=== PATIENT | female | born 1995 | race Caucasian/White ===

== ENCOUNTER 2016-10-28 18:48 | Inpatient (IN) | payer OTHER, MEDICAID ==
[2016-10-28] MEDS ORDERED: Dinoprostone* 10 MG VAG.SUPP VAGINAL ONE (18:54)
[2016-10-29] MEDS: Misoprostol TAB* 100 MCG PO SCH ×3 (09:19→20:18)
[2016-10-29] MEDS ORDERED: Misoprostol TAB* 100 MCG ONE ×2 (14:01→20:14)
[2016-10-30] MEDS ORDERED: Nalbuphine* 20 MG/ML 1 ML VIAL IV ONE ×3 (00:49→21:45)
[2016-10-30] MEDS ORDERED: Promethazine INJ(RESTRICTED)* 25 MG/ML 1 ML VIAL IV ONE ×3 (00:49→21:45)
[2016-10-30] MEDS ORDERED: Lactated Ringers 500 ml BAG* 500 ML IV ONE (01:00)
[2016-10-30] MEDS ORDERED: Nalbuphine* 20 MG/ML 1 ML VIAL ONE (01:02)
[2016-10-30] MEDS ORDERED: Promethazine INJ(RESTRICTED)* 25 MG/ML 1 ML VIAL ONE (01:02)
[2016-10-30 01:07] LABS: Hematocrit 32 % (35-47); Hemoglobin 10.8 g/dl (12.0-16.0); Mean Corpuscular HGB Conc 34 g/dl (31-36); Mean Corpuscular Hemoglobin 26 pg (27-31); Mean Corpuscular Volume 77 fL (80-97); Mean Platelet Volume 8 um3 (7.4-10.4); Red Blood Count 4.16 10^6/ul (4.0-5.4); Red Cell Distribution Width 15 % (10.5-15); White Blood Count 15.6 10^3/ul (3.5-10.8)
[2016-10-30 01:08] LABS: Comments Flag Yes
[2016-10-30 01:09] LABS: Add Diff/Slide Review? Slide Review Added
[2016-10-30] MEDS ORDERED: Oxytocin in LR* 20 UNITS/1,000 ML BAG IVPB ONE (09:55)
[2016-10-30] MEDS ORDERED: Oxytocin in LR* 20 UNITS/1,000 ML BAG IVPB SCH ×2 (10:00→21:49)
[2016-10-31] MEDS ORDERED: OBEPIDURAL* 250 ML ONE (01:06)
[2016-10-31] MEDS ORDERED: Sodium Citrate/Citric Acid* 15 ML UDC PO PRN (01:49)
[2016-10-31] MEDS ORDERED: Phenylephrine IV* 40 MCG/ML 10 ML SYRINGE IV PUSH PRN (01:49)
[2016-10-31] MEDS ORDERED: EPHEDrine (Pressors)* 50 MG/ML VIAL IV PUSH PRN (01:49)
[2016-10-31] MEDS ORDERED: Famotidine TAB* 20 MG PO PRN (01:49)
[2016-10-31] MEDS ORDERED: OBEPIDURAL* 250 ML EPIDURAL SCH (02:00)
[2016-10-31] MEDS ORDERED: Clindamycin 600 MG IVPREMIX(* 600 MG/50 ML SDV IV ONE (04:41)
[2016-10-31] MEDS ORDERED: Acetaminophen TAB* 325 MG PO ONE (04:42)
[2016-10-31] MEDS ORDERED: Acetaminophen TAB* 325 MG ONE (04:44)
[2016-10-31] MEDS ORDERED: Glycerin ADULT SUPP PR PRN (06:45)
[2016-10-31] MEDS ORDERED: oxyCODONE/Acetamin 5/325 MG* TAB PO PRN (06:45)
[2016-10-31] MEDS ORDERED: Oxytocin in LR* 20 UNITS/1,000 ML BAG IVPB SCH (06:48)
[2016-10-31] MEDS ORDERED: Ammonia Inhalant* 1 EA AMP ONE (08:38)
[2016-10-31] MEDS: Docusate CAP* 100 MG PO SCH ×3 (14:04→20:34)
[2016-10-31] MEDS: Witch Hazel PAD* JAR TOPICAL PRN (16:22)
[2016-10-31] MEDS: Dibucaine 1% 28.35 GM TUBE PR PRN (16:22)
[2016-10-31] MEDS: Acetaminophen TAB* 325 MG PO PRN (20:34)
[2016-11-01] MEDS: Acetaminophen TAB* 325 MG PO PRN ×4 (00:38→20:21)
[2016-11-01] MEDS: Docusate CAP* 100 MG PO SCH ×3 (08:49→20:29)
[2016-11-01 09:48] LABS: Hematocrit 26 % (35-47); Hemoglobin 8.6 g/dl (12.0-16.0); Mean Corpuscular HGB Conc 33 g/dl (31-36); Mean Corpuscular Hemoglobin 26 pg (27-31); Mean Corpuscular Volume 77 fL (80-97); Mean Platelet Volume 8 um3 (7.4-10.4); Red Blood Count 3.38 10^6/ul (4.0-5.4); Red Cell Distribution Width 15 % (10.5-15); White Blood Count 34.7 10^3/ul (3.5-10.8)
[2016-11-01 09:53] LABS: Comments Flag Yes
[2016-11-01 09:56] LABS: Add Diff/Slide Review? Slide Review Added
[2016-11-01 10:14] LABS: Eosinophils % 1 % (0-6); Immature Granulocytes 15 % (0-9); Neutrophil % 70 % (38-83)
[2016-11-01 10:15] LABS: Polychromasia 1+
[2016-11-01] MEDS: Ferrous Gluconate TAB* 324 MG TAB PO SCH ×2 (10:59→20:21)
[2016-11-02] MEDS: Acetaminophen TAB* 325 MG PO PRN (10:06)
[2016-11-02] MEDS: Docusate CAP* 100 MG PO SCH (10:06)
[2016-11-02] MEDS: Ferrous Gluconate TAB* 324 MG TAB PO SCH (10:06)
[2016-11-02 12:04] VITALS: BP 126/86
[2016-11-02] MEDS: Witch Hazel PAD* JAR TOPICAL PRN (12:24)
[2016-11-02] MEDS: Dibucaine 1% 28.35 GM TUBE PR PRN (12:24)
== END 2016-11-02 13:11 | disposition home or self-care (01) | DRG 560 ==
LOC: MCHOBOUT 18:48 → MCHOB 19:20
PROVIDERS: ADMIT Midwife; ATTEND Midwife
PROC: 10E0XZZ Delivery of Products of Conception, External Approach (ICD-10-PCS; principal; 2016-10-31)
PROC: 3E033VJ Introduction of Other Hormone into Peripheral Vein, Percutaneous Approach (ICD-10-PCS; 2016-10-31)
PROC: 10907ZC Drainage of Amniotic Fluid, Therapeutic from Products of Conception, Via Natural or Artificial Opening (ICD-10-PCS; 2016-10-31)
PROC: 0W8NXZZ Division of Female Perineum, External Approach (ICD-10-PCS; 2016-10-31)
DX: O48.0 Post-term pregnancy (principal); O99.344 Other mental disorders complicating childbirth; D64.9 Anemia, unspecified; O69.3XX0 Labor and delivery complicated by short cord, not applicable or unspecified; O90.81 Anemia of the puerperium; F41.8 Other specified anxiety disorders; Z88.6 Allergy status to analgesic agent; Z88.0 Allergy status to penicillin; Z88.8 Allergy status to other drugs, medicaments and biological substances; Z3A.41 41 weeks gestation of pregnancy; Z37.0 Single live birth
CPT/HCPCS: 36415; 59200; 85025; 86850; 86900; 86901; A9270-GY; J1580; J2300; J2550; S0191

== ENCOUNTER 2017-02-21 17:50 | Emergency (ER) | payer OTHER ==
[2017-02-21 18:09] VITALS: BP 118/84
[2017-02-21] MEDS ORDERED: Acetaminophen TAB* 325 MG PO ONE (18:37)
--- NOTE | 2017-02-21 19:58 | UC ---
Gerardo Cleaning Nilda, scribed for Jordy Mtz MD on 02/21/17 at 1950 . Complaint Female HPI - HPI Summary HPI Summary: This patient is a 21 year old F presenting to [facility] with a chief complaint of constant pain that wraps around lower abdomen and back for the past 3 days. The patient rates the cramping, aching pain 4/10 in severity. Symptoms aggravated by urination and alleviated by Tylenol taken [employer]. Patient reports fever, lightheadedness, vomiting (unsure if secondary to pain), and feeling severe pressure-like pain for 5-10 seconds after urination. Patient denies sore throat. Since having her daughter 10/31/16, pt had been bleeding up until 2.5 weeks ago s/p bcp adjustment. Pt notes shes had a UTI before having her daughter but was asymptomatic at that time. PMHx includes ovarian cyst. - History Of Current Complaint Chief Complaint: UCAbdominalPain Stated Complaint: ABD AND LOWER BACK PAIN Time Seen by Provider: 02/21/17 18:31 Hx Obtained From: Patient Hx Last Menstrual Period: 10/31/16-daughter born Onset/Duration: Sudden Onset, Lasting Days, Still Present Timing: Constant Severity Currently: Moderate Pain Intensity: 4 Pain Scale Used: 0-10 Numeric Radiates to: lower back Character: Cramping Aggravating Factor(s): Urination Alleviating Factor(s): Meds - Tylenol Associated Signs And Symptoms: Positive: Fever, Back Pain, Vomiting(# Of Episodes =) - Allergies/Home Medications Allergies/Adverse Reactions: Allergies Allergy/AdvReac Type Severity Reaction Status Date / Time Penicillins [PCN] Allergy Intermediate Hives Verified 02/21/17 18:09 Aspirin Allergy Hives Verified 02/21/17 18:09 Ibuprofen Allergy Hives Verified 02/21/17 18:09 Paroxetine [From Paxil] Allergy Hives Verified 02/21/17 18:09 Tramadol AdvReac Mild Vomiting Verified 02/21/17 18:09 Dicyclomine [From Bentyl] AdvReac gastritis Verified 02/21/17 18:09 Home Medications: Home Medications Ethynodiol Diacet & Eth Estrad [Kelnor 1-35 mg-Mcg] 1 tab PO DAILY [History Confirmed 02/21/17] PMH/Surg Hx/FS Hx/Imm Hx GI/ History: Gastroesophageal Reflux, Other Other GI/ History: ovarian cyst Neurological History: Seizures Psychological History: Anxiety, Depression - Surgical History Surgical History: Yes Surgery Procedure, Year, and Place: 2012 CYST DRAINED FROM [facility]ENEATH JAW, [facility]. 2013 CYST REMOVED FROM [facility]ENE[facility], [facility]. 10/2014 LEFT WRIST TENDON REPAIR, [facility]. ALC L leg. - Family History Known Family History: Positive: Cardiac Disease, Hypertension, Diabetes Family History: no cardoi-vascular issues in family history, no clotting disorders, - Social History Alcohol Use: None Substance Use Type: None Smoking Status (MU): Former Smoker Type: Cigarettes Amount Used/How Often: 1/2 pack daily Have You Smoked in the Last Year: Yes Household Exposure Type: Cigarettes - Immunization History Most Recent Influenza Vaccination: Declined 2016 Most Recent Pneumonia Vaccination: Uknown Review of Systems Constitutional: Fever ENT: Other - negative sore throat Gastrointestinal: Abdominal Pain - lower abd pain that radiates to lower back, Vomiting - possibly secondary to pain Genitourinary: Other - severe pressure-like pain for 5-10 seconds after urination Neurological: Other - lightheadedness All Other Systems Reviewed And Are Negative: Yes Physical Exam Triage Information Reviewed: Yes Vital Signs: Initial Vital Signs Temp 101.7 F 02/21/17 18:04 Pulse 117 02/21/17 18:04 Resp 14 02/21/17 18:04 BP 118/84 02/21/17 18:04 Pulse Ox 100 02/21/17 18:04 Vital Signs Reviewed: Yes - Additional Comments General: mildly ill-appearing, no pain distress Skin: warm, color reflects adequate perfusion, dry Head: normal Eyes: EOMI, DAVID ENT: normal Neck: supple, nontender Respiratory: CTA, breath sounds present Cardiovascular: tachycardic Abdomen: soft, mild suprapubic tenderness Bowel: present Musculoskeletal: normal, strength/ROM intact, bilat CVA tender to percussion Neurological: normal, sensory/motor intact, A&O x3 Psychological: affect/mood appropriate Complaint Female Dx - Course Course Of Treatment: Medications reviewed. Allergies noted. BP noted and advised to follow up with PCP. DISCUSSED RESULTS WITH PATIENT. F/U PMD; RETURN IF NOT IMPROVED OR WORSENS. - Differential Dx/Diagnosis Provider Diagnoses: UTI. Elevated blood pressure without history of hypertension Discharge - Discharge Plan Condition: Stable Disposition: HOME Prescriptions: Ondansetron ODT TAB* [Zofran 4 MG Odt TAB*] 4 mg PO Q6H PRN #10 tab.odt PRN Reason: Nausea Phenazopyridine 200 mg (NF) [Pyridium 200 MG tab *] 200 mg PO TID PRN #10 tab PRN Reason: Pain Sulfamethox/Trimethoprim DS* [Bactrim DS 800/160 TAB*] 1 tab PO BID #20 tab Patient Education Materials: Urinary Tract Infection in Women (ED) Forms: *Work Release Referrals: Dixie Barahona CNM [Primary Care Provider] - Additional Instructions: FOLLOW UP WITH YOUR DOCTOR. GET RECHECKED FOR ANY WORSENING OF YOUR CONDITION OR QUESTIONS OR CONCERNS. Your blood pressure was elevated during todays visit; please follow up with your primary care provider within a week for further evaluation. The documentation as recorded by the Gerardo hayden Nilda accurately reflects the service I personally performed and the decisions made by me, Jordy Mtz MD.
== END 2017-02-21 19:08 | disposition home or self-care (01) ==
LOC: UCEAST 17:50
DX: N39.0 Urinary tract infection, site not specified (principal); I10 Essential (primary) hypertension; R11.10 Vomiting, unspecified; Z88.0 Allergy status to penicillin; Z88.6 Allergy status to analgesic agent; Z88.8 Allergy status to other drugs, medicaments and biological substances; Z87.891 Personal history of nicotine dependence
CPT/HCPCS: 81003; 81025; 87077; 87086; 87186; 99212; A9270-GY; G0463

== ENCOUNTER 2017-06-22 12:48 | Emergency (ER) | payer MEDICAID, OTHER ==
[2017-06-22 13:00] VITALS: BP 110/68
--- NOTE | 2017-06-22 13:02 | UC ---
Respiratory Complaint HPI - HPI Summary HPI Summary: 21 yo female presents with 4 days of dry cough, right ear pain, and sinus pain/ pressure/congestion. She has not been taking anything OTC. Denies fever, chills , sore throat, SOB, chest pain. - History of Current Complaint Chief Complaint: UCRespiratory Stated Complaint: URI Time Seen by Provider: 06/22/17 13:02 Hx Obtained From: Patient Hx Last Menstrual Period: 06/15/17 Onset/Duration: Gradual Onset Severity Initially: Mild Severity Currently: Moderate Pain Intensity: 5 Pain Scale Used: 0-10 Numeric Character: Cough: Nonproductive - Allergies/Home Medications Allergies/Adverse Reactions: Allergies Allergy/AdvReac Type Severity Reaction Status Date / Time aspirin Allergy Hives Verified 06/22/17 13:02 ibuprofen Allergy Hives Verified 06/22/17 13:02 paroxetine [From Paxil] Allergy Hives Verified 06/22/17 13:02 Penicillins Allergy Hives Verified 06/22/17 13:02 tramadol Allergy See Comment Verified 06/22/17 13:02 PMH/Surg Hx/FS Hx/Imm Hx - Additional Past Medical History Additional PMH: None Previously Healthy: Yes - Surgical History Surgical History: Yes Surgery Procedure, Year, and Place: 2012 CYST DRAINED FROM [facility], [facility]. 2013 CYST REMOVED FROM [facility], [facility]. 10/2014 LEFT WRIST TENDON REPAIR, [facility]. ALC L leg. - Family History Known Family History: Positive: Cardiac Disease, Hypertension, Diabetes Family History: no cardoi-vascular issues in family history, no clotting disorders, - Social History Occupation: Employed Full-time Lives: With Family Alcohol Use: None Substance Use Type: None Smoking Status (MU): Former Smoker Type: Cigarettes Amount Used/How Often: 1/2 pack daily Have You Smoked in the Last Year: Yes Household Exposure Type: Cigarettes - Immunization History Most Recent Influenza Vaccination: Declined 2017 Most Recent Pneumonia Vaccination: Uknown Review of Systems Constitutional: Negative Skin: Negative Eyes: Negative ENT: Ear Ache, Nasal Discharge, Sinus Congestion, Sinus Pain/Tenderness Respiratory: Cough Cardiovascular: Negative Gastrointestinal: Negative Neurovascular: Negative Neurological: Negative Psychological: Negative All Other Systems Reviewed And Are Negative: Yes Physical Exam - Summary Physical Exam Summary: GENERAL: NAD. WDWN. No pain distress. SKIN: No rashes, sores, lesions, or open wounds. HEENT: Head: AT/NC Eyes: EOM intact. Conjunctiva clear without inflammation or discharge. Ears: Hearing grossly normal. Right TM with mild erythema and bulging. No canal edema or drainage. Nose: Nasal mucosa mildly swollen and erythematous with yellow/ clear discharge. TTP maxillary and frontal sinus. Throat: Posterior oropharynx without exudates, erythema, or tonsillar enlargement. Uvula midline. NECK: Supple. Nontender. No lymphadenopathy. CHEST: CTAB. No r/r/w. No accessory muscle use. Breathing comfortably and in no distress. CV: RRR. Without m/r/g. Pulses intact. Brisk cap refill. NEURO: Alert. CN II-XII grossly intact. PSYCH: Age appropriate behavior. Triage Information Reviewed: Yes Vital Signs: Initial Vital Signs Temp 98.2 F 06/22/17 12:57 Pulse 83 06/22/17 12:57 Resp 18 06/22/17 12:57 BP 110/68 06/22/17 12:57 Pulse Ox 100 06/22/17 12:57 UC Diagnostic Evaluation - Laboratory O2 Sat by Pulse Oximetry: 100 Respiratory Course/Dx - Course Course Of Treatment: Right otitis media. Sinusitis - Differential Dx/Diagnosis Provider Diagnoses: Right otitis media. Sinusitis Discharge - Sign-Out/Discharge Documenting (check all that apply): Discharge/Admit/Transfer - Discharge Plan Condition: Stable Disposition: HOME Prescriptions: Clindamycin HCl 150 mg PO TID #21 capsule Mometasone Furoate [Nasonex] 1 spray NASAL DAILY #1 bottle Patient Education Materials: Sinusitis (ED) Forms: *Work Release Referrals: Dixie Barahona CNM [Primary Care Provider] - Additional Instructions: If you develop a fever, shortness of breath, chest pain, new or worsening symptoms - please call your PCP or go to the ED. - Billing Disposition and Condition Condition: STABLE Disposition: HOME
== END 2017-06-22 13:13 | disposition home or self-care (01) ==
LOC: UCEAST 12:48
DX: H66.91 Otitis media, unspecified, right ear (principal); J32.9 Chronic sinusitis, unspecified; Z88.6 Allergy status to analgesic agent; Z88.5 Allergy status to narcotic agent; Z88.0 Allergy status to penicillin; Z88.8 Allergy status to other drugs, medicaments and biological substances; Z87.891 Personal history of nicotine dependence
CPT/HCPCS: 99212; G0463

== ENCOUNTER 2017-07-29 09:41 | Emergency (ER) | payer SELFPAY ==
[2017-07-29 12:02] VITALS: BP 100/63
--- NOTE | 2017-07-29 12:49 | ED ---
Back Pain - HPI Summary HPI Summary: 21f presents with right side pain since yesterday. States she lifted something at work and two hours later she developed the pain. Her pain is located in the right at the 12th lower rib. She denies any belly pain. No nausea and no vomiting. No pain with urination. She denies any midline tenderness in her back. no previous injury to the area. She denies any shortness breath or chest pain. No palpitations. No pain or swelling in her calf muscles. No family history of blood clots. - History of Current Complaint Chief Complaint: UCAbdominalPain Stated Complaint: SIDE PAIN Time Seen by Provider: 07/29/17 11:22 Hx Last Menstrual Period: 06/15/17 Pain Intensity: 5 - Allergies/Home Medications Allergies/Adverse Reactions: Allergies Allergy/AdvReac Type Severity Reaction Status Date / Time aspirin Allergy Hives Verified 07/29/17 10:10 ibuprofen Allergy Hives Verified 07/29/17 10:10 paroxetine [From Paxil] Allergy Hives Verified 07/29/17 10:10 Penicillins Allergy Hives Verified 07/29/17 10:10 tramadol Allergy See Comment Verified 07/29/17 10:10 PMH/Surg Hx/FS Hx/Imm Hx Endocrine/Hematology History: Denies: Hx Diabetes, Hx Thyroid Disease Cardiovascular History: Denies: Hx Hypertension Respiratory History: Denies: Hx Asthma, Hx Chronic Obstructive Pulmonary Disease (COPD) GI History: Reports: Hx Gastroesophageal Reflux Disease - NO MEDS Denies: Hx Ulcer History: Reports: Other Problems/Disorders - ovarian cyst- intermittent bilateral sides Sensory History: Reports: Hx Contacts or Glasses - GLASSES-BROKEN Denies: Hx Hearing Aid Opthamlomology History: Reports: Hx Contacts or Glasses - GLASSES-BROKEN Neurological History: Reports: Hx Seizures - 11/2014-R/T PAXIL MEDICATION Psychiatric History: Reports: Hx Anxiety - NO MED, Hx Depression - Surgical History Surgery Procedure, Year, and Place: 2012 CYST DRAINED FROM [facility], [facility]. 2013 CYST REMOVED FROM [facility], [facility]. 10/2014 LEFT WRIST TENDON REPAIR, [facility]. Acl L leg. Hx Anesthesia Reactions: No - Immunization History Date of Tetanus Vaccine: 5 yrs ago Date of Influenza Vaccine: 2010 Infectious Disease History: No Infectious Disease History: Denies: Hx Hepatitis, Hx Human Immunodeficiency Virus (HIV), Traveled Outside the [place] in Last 30 Days - Family History Known Family History: Positive: Cardiac Disease, Hypertension, Diabetes Family History: no cardoi-vascular issues in family history, no clotting disorders, - Social History Alcohol Use: Rare Substance Use Type: Reports: None Smoking Status (MU): Light Every Day Tobacco Smoker Type: Cigarettes Amount Used/How Often: 1/2 pack daily Have You Smoked in the Last Year: Yes Review of Systems Negative: Fever Negative: Chest Pain Positive: Other - right side pain. Negative: Shortness Of Breath Negative: Abdominal Pain Negative: dysuria All Other Systems Reviewed And Are Negative: Yes Physical Exam Triage Information Reviewed: Yes Vital Signs On Initial Exam: Initial Vitals Temp Pulse Resp BP Pulse Ox 98.5 F 79 18 102/6 97 07/29/17 10:06 07/29/17 10:06 07/29/17 10:06 07/29/17 10:06 07/29/17 10:06 Vital Signs Reviewed: Yes Appearance: Positive: Well-Appearing Skin: Positive: Warm, Dry Head/Face: Positive: Normal Head/Face Inspection Eyes: Positive: Normal, Conjunctiva Clear ENT: Positive: Pharynx normal Respiratory/Lung Sounds: Positive: Clear to Auscultation, Breath Sounds Present , Other - tenderness over right ribs 12 lateral Cardiovascular: Positive: Normal, RRR Abdomen Description: Positive: Nontender, Soft Bowel Sounds: Positive: Present Musculoskeletal: Positive: Normal Neurological: Positive: Normal Psychiatric: Positive: Normal Diagnostics - Vital Signs Vital Signs Temp Pulse Resp BP Pulse Ox 07/29/17 12:00 98.1 F 84 15 100/63 100 07/29/17 10:06 98.5 F 79 18 102/6 97 - Laboratory Lab Results: Lab Results 07/29/17 07/29/17 Range/Units 11:51 11:53 POC Urine Color Yellow POC Urine Clarity Clear POC Urine pH 5.5 (5-9) POC Ur Specif Ione 1.025 (1.010-1.030) POC Urine Protein Negative (Negative) POC Ur Glucose (UA) Negative (Negative) POC Urine Ketones Negative (Negative) POC Urine Blood Trace-intact A (Negative) POC Urine Nitrite Negative (Negative) POC Urine Bilirubin Negative (Negative) POC Urine Urobilinogen 0.2 (Negative) POC U Leukocyte Esteras Trace A (Negative) POC Ur Test Negative (Negative) Lab Statement: Any lab studies that have been ordered have been reviewed, and results considered in the medical decision making process. - Radiology rib Xray Interpretation: No Acute Changes Radiology Interpretation Completed By: Radiologist Back Pain Course/Dx - Course Course Of Treatment: 21f presents with right side pain since yesterday. States she lifted something at work and two hours later she developed the pain. Her pain is located in the right at the 12th lower rib. She denies any belly pain. No nausea and no vomiting. No pain with urination. She denies any midline tenderness in her back. no previous injury to the area. She denies any shortness breath or chest pain. No palpitations. No pain or swelling in her calf muscles. No family history of blood clots. on exam negative CVA tenderness. Tenderness over her right lateral rib #12. X-ray normal. Urine probable contaminant will wait for culture. We'll prescribe muscle relaxer for pain. explained likely muscular. Patient understands agrees with plan. - Diagnoses Differential Diagnosis/HQI/PQRI: Positive: Fracture, Strain, Sprain, Other - pyelo Provider Diagnoses: Rib pain on right side Discharge - Sign-Out/Discharge Documenting (check all that apply): Discharge/Admit/Transfer - Discharge Plan Condition: Good Disposition: HOME Prescriptions: Cyclobenzaprine TAB* [Flexeril 10 MG TAB*] 10 mg PO TID PRN #15 tab PRN Reason: Pain Patient Education Materials: Flank Pain (ED) Forms: *Work Release Referrals: Dixie Barahona CNM [Primary Care Provider] - Additional Instructions: take tyenlol every 6 hours take muscular relaxer three times a day for pain Place ice/heat on area Follow up with primary within 5 days Return to if develop any new or worsening symptoms - Billing Disposition and Condition Condition: GOOD Disposition: Home
--- NOTE | 2017-07-29 12:51 | RAD ---
Indication: Right rib pain. 4 views of the right ribs and dual energy PA view of the chest demonstrates no pneumothorax. No rib fracture is identified. No mediastinal shift is noted. Heart is of normal size and configuration. IMPRESSION: No pneumothorax. No rib fracture is noted.
--- NOTE | 2017-07-31 11:35 | UC ---
- Progress Note Progress Note: I SPOKE WITH THE PT TODAY. ADVISED THAT HER URINE GREW OUT STREP AND A SMALLER AMOUNT OF E.COLI. SHE REPORTS HER FLANK PAIN IS A BIT BETTER BUT NOT RESOLVED. CONTINUES TO DENY ANY URINARY SX BUT STATES SHE HAS HAD AN ASYMPTOMATIC UTI IN THE PAST. WILL TX WITH BACTRIM. ERX SENT TO [facility]. ADVISED TO SEEK FOLLOW-UP IF SHE IS NOT IMPROVING WITH TX. - ALMA ROSA COLLINS MD Course/Dx - Diagnoses Provider Diagnoses: Rib pain on right side Discharge - Sign-Out/Discharge Documenting (check all that apply): Post-Discharge Follow Up - Discharge Plan Condition: Good Disposition: HOME Prescriptions: Cyclobenzaprine TAB* [Flexeril 10 MG TAB*] 10 mg PO TID PRN #15 tab PRN Reason: Pain Sulfamethox/Trimethoprim DS* [Bactrim DS 800/160 TAB*] 1 tab PO BID #10 tab Patient Education Materials: Flank Pain (ED) Forms: *Work Release Referrals: Dixie Barahona CNM [Primary Care Provider] - Additional Instructions: take tyenlol every 6 hours take muscular relaxer three times a day for pain Place ice/heat on area Follow up with primary within 5 days Return to UC if develop any new or worsening symptoms - Billing Disposition and Condition Condition: GOOD Disposition: Home
== END 2017-07-29 13:08 | disposition home or self-care (01) ==
LOC: UCEAST 09:41
DX: R07.81 Pleurodynia (principal); X50.0XXA Overexertion from strenuous movement or load, initial encounter; Y92.89 Other specified places as the place of occurrence of the external cause; G40.909 Epilepsy, unspecified, not intractable, without status epilepticus; F17.210 Nicotine dependence, cigarettes, uncomplicated
CPT/HCPCS: 81003; 84702; 87077; 87086; 87186; 99212; G0463

== ENCOUNTER → 2017-10-24 07:49 | Emergency (ER) | payer OTHER ==
--- NOTE | 2017-10-24 08:20 | ED ---
Abdominal Pain/Female - HPI Summary HPI Summary: 22 year old F presenting to [facility] from work complains of abdominal pain since one hour ago. She describes the pain as cramping. The patient rates the pain 2/ 10 in severity. Symptoms aggravated by nothing. Symptoms alleviated by nothing. Patient reports nausea. She additionally notes vaginal bleeding. Patient is currently 7 weeks . A1. Patient has not had previous complications, besides one miscarriage. Her OBGYN referred her to ED today. - History of Current Complaint Chief Complaint: EDOBProblems Stated Complaint: 7 WKS PREG/ABD PAIN Time Seen by Provider: 10/24/17 08:01 Hx Obtained From: Patient ?: Yes - 7 weeks Onset/Duration: Sudden Onset, Lasting Hours, Still Present Timing: Constant Severity Currently: Mild Pain Intensity: 2 Pain Scale Used: 0-10 Numeric Character: Cramping Aggravating Factor(s): Nothing Alleviating Factor(s): Nothing Associated Signs and Symptoms: Positive: Vaginal Bleeding, Nausea Allergies/Adverse Reactions: Allergies Allergy/AdvReac Type Severity Reaction Status Date / Time aspirin Allergy Hives Verified 10/24/17 07:55 ibuprofen Allergy Hives Verified 10/24/17 07:55 paroxetine [From Paxil] Allergy Hives Verified 10/24/17 07:55 Penicillins Allergy Hives Verified 10/24/17 07:55 tramadol Allergy See Comment Verified 10/24/17 07:55 Home Medications: Home Medications Pnv No.95/Ferrous Fum/Folic AC [ Multivitamin Tablet] 1 each PO DAILY [History Confirmed 10/24/17] PMH/Surg Hx/FS Hx/Imm Hx Previously Healthy: No Endocrine/Hematology History: Denies: Hx Diabetes, Hx Thyroid Disease Cardiovascular History: Denies: Hx Hypertension Respiratory History: Denies: Hx Asthma, Hx Chronic Obstructive Pulmonary Disease (COPD) GI History: Reports: Hx Gastroesophageal Reflux Disease - NO MEDS Denies: Hx Ulcer History: Reports: Other Problems/Disorders - ovarian cyst- intermittent bilateral sides Sensory History: Reports: Hx Contacts or Glasses - GLASSES-BROKEN Denies: Hx Hearing Aid Opthamlomology History: Reports: Hx Contacts or Glasses - GLASSES-BROKEN Neurological History: Reports: Hx Seizures - 11/2014-R/T PAXIL MEDICATION Psychiatric History: Reports: Hx Anxiety - NO MED, Hx Depression - Surgical History Surgery Procedure, Year, and Place: 2013 CYST DRAINED FROM [facility], [facility]. 2013 CYST REMOVED FROM [facility], [facility]. 10/2014 LEFT WRIST TENDON REPAIR, [facility]. Acl L leg. Hx Anesthesia Reactions: No - Immunization History Date of Tetanus Vaccine: 5 yrs ago Date of Influenza Vaccine: 2010 Infectious Disease History: No Infectious Disease History: Denies: Hx Hepatitis, Hx Human Immunodeficiency Virus (HIV), Traveled Outside the [place] in Last 30 Days - Family History Known Family History: Positive: Cardiac Disease, Hypertension, Diabetes Family History: no cardoi-vascular issues in family history, no clotting disorders, - Social History Alcohol Use: Rare Hx Substance Use: No Substance Use Type: Reports: None Hx Tobacco Use: Yes Smoking Status (MU): Light Every Day Tobacco Smoker Type: Cigarettes Amount Used/How Often: 1/2 pack daily Have You Smoked in the Last Year: Yes Review of Systems Positive: Abdominal Pain, Nausea Positive: other - vaginal bleeding All Other Systems Reviewed And Are Negative: Yes Physical Exam - Summary Physical Exam Summary: Appearance: The patient is well-nourished in no acute distress and in no acute pain. Skin: The skin is warm and dry and skin color reflects adequate perfusion. HEENT: The head is normocephalic and atraumatic. The pupils are equal and reactive. The conjunctivae are clear and without drainage. Nares are patent and without drainage. Mouth reveals moist mucous membranes and the throat is without erythema and exudate. The external ears are intact. The ear canals are patent and without drainage. The tympanic membranes are intact. Neck: The neck is supple with full range of motion and non-tender. There are no carotid bruits. There is no neck vein distension. Respiratory: Chest is non-tender. Lungs are clear to auscultation and breath sounds are symmetrical and equal. Cardiovascular: Heart is regular rate and rhythm. There is no murmur or rub auscultated. There is no peripheral edema and pulses are symmetrical and equal. Abdomen: Mildly tender in the suprapubic area Musculoskeletal: There is no back tenderness noted. Extremities are non-tender with full range of motion. There is good capillary refill. There is no peripheral edema or calf tenderness elicited. Neurological: Patient is alert and oriented to person, place and time. The patient has symmetrical motor strength in all four extremities. Cranial nerves are grossly intact. Deep tendon reflexes are symmetrical and equal in all four extremities. Psychiatric: The patient has an appropriate affect and does not exhibit any anxiety or depression. Triage Information Reviewed: Yes Vital Signs On Initial Exam: Initial Vitals Temp Pulse Resp BP Pulse Ox 98.3 F 75 16 123/82 100 10/24/17 07:53 10/24/17 07:53 10/24/17 07:53 10/24/17 07:53 10/24/17 07:53 Vital Signs Reviewed: Yes Diagnostics - Vital Signs Vital Signs Temp Pulse Resp BP Pulse Ox 10/24/17 07:53 98.3 F 75 16 123/82 100 - Laboratory Result Diagrams: 10/24/17 08:36 10/24/17 08:36 Lab Statement: Any lab studies that have been ordered have been reviewed, and results considered in the medical decision making process. - Ultrasound No standard instances Ultrasound Interpretation Completed By: Radiologist - 1. EARLY INTRAUTERINE WITH ESTIMATED GESTATIONAL AGE OF 7 WEEKS 0 DAYS BY CROWN-RUMP LENGTH. 2. SUBCHORIONIC HEMATOMA. ED physician has reviewed this report. Abdominal Pain Fem Course/Dx - Course Course Of Treatment: Ms. Paris was very stable here in the emergency department. Labs were obtained and her hCG was about 100,000 consistent with 7 weeks and an ultrasound was obtained. The ultrasound showed a viable IUP at 7 weeks and the small subchorionic hemorrhage. She is Rh+. She was reassured and recommended follow-up with [facility]. - Diagnoses Provider Diagnoses: Subchorionic hemorrhage Discharge - Sign-Out/Discharge Documenting (check all that apply): Patient Departure - Discharge - Discharge Plan Condition: Stable Disposition: HOME Patient Education Materials: Threatened Miscarriage (ED) Referrals: Dixie Barahona CNM [Primary Care Provider] - Additional Instructions: Follow up with your OBGYN in 2 days. RETURN TO THE EMERGENCY DEPARTMENT FOR NEW OR WORSENING SYMPTOMS. - Billing Disposition and Condition Condition: STABLE Disposition: Home - Attestation Statements Document Initiated by Scribe: Yes Documenting Scribe: Dahiana Coppola Provider For Whom Scribe is Documenting (Include Credential): Alan Rosado MD Scribe Attestation: Dahiana Cleaning, scribed for Alan Rosado MD on 10/24/17 at 1159. Scribe Documentation Reviewed: Yes Provider Attestation: The documentation as recorded by the scribeDahiana accurately reflects the service I personally performed and the decisions made by me, Alan Rosado MD
[2017-10-24 08:44] LABS: ABS Basophils 0.1 10^3/ul (0-0.2); ABS Eosinophils 0 10^3/ul (0-0.6); ABS Lymphocytes 1.6 10^3/ul (1.0-4.8); ABS Monocytes 0.5 10^3/ul (0-0.8); ABS Neutrophils 3.2 10^3/ul (1.5-7.7); ABS Nucleated RBC 0 10^3/ul; Eosinophil % 0.6 % (0-6); Hematocrit 37 % (35-47); Hemoglobin 12.7 g/dl (12.0-16.0); Lymphocyte % 29.6 % (25-47); Mean Corpuscular HGB Conc 34 g/dl (31-36); Mean Corpuscular Hemoglobin 28 pg (27-31); Mean Corpuscular Volume 82 fL (80-97); Mean Platelet Volume 7.2 um3 (7.4-10.4); Nucleated Red Blood Cells % 0; Platelet Count 229 10^3/ul (150-450); Red Blood Count 4.53 10^6/ul (4.00-5.40); Red Cell Distribution Width 14 % (10.5-15); White Blood Count 5.4 10^3/ul (3.5-10.8)
[2017-10-24 08:50] LABS: INR 1.09 (0.77-1.02)
[2017-10-24 08:50] LABS: Urine Appearance Clear; Urine Blood Negative (Negative); Urine Color Colorless; Urine Ketones Negative (Negative); Urine Protein Negative (Negative); Urine Specific Gravity 1.001 (1.010-1.030); Urine Urobilinogen Negative (Negative)
[2017-10-24 09:00] LABS: EGFR Non-African American 106.3 (>60)
--- NOTE | 2017-10-24 11:01 | RAD ---
INDICATION: Spotting and cramping, . COMPARISON: There are no relevant prior studies available for comparison. TECHNIQUE: Multiple real-time transvaginal images of the pelvis were obtained. FINDINGS: This exam demonstrates an early intrauterine . A pole and yolk sac are visualized. The heart rate was 112 beats per minute. The crown-rump length measured 0.89 cm corresponding to an estimated gestational age of 7 weeks 0 days. The mean sac diameter measured 2.27 cm corresponding to an estimate gestational age of 7 weeks 3 days. There is a subchorionic collection measuring 1.6 x 0.2 cm. The right ovary measured 4.3 x 2.3 x 4.8 cm. The left ovary measured 2.9 x 2.6 x 2.2 cm. There is vascular flow within both ovaries. There is a 3.0 x 2.9 x 1.9 cm simple cyst within the right ovary. There is a small amount of free intraperitoneal fluid in the cul-de-sac and right adnexa. IMPRESSION: 1. EARLY INTRAUTERINE WITH ESTIMATED GESTATIONAL AGE OF 7 WEEKS 0 DAYS BY CROWN-RUMP LENGTH. 2. SUBCHORIONIC HEMATOMA.
[2017-10-24 11:43] VITALS: BP 118/77
== END | disposition home or self-care (01) ==
LOC: ED 07:49
DX: O20.8 Other hemorrhage in early pregnancy (principal); O99.331 Smoking (tobacco) complicating pregnancy, first trimester; F17.210 Nicotine dependence, cigarettes, uncomplicated; Z3A.01 Less than 8 weeks gestation of pregnancy; Z88.0 Allergy status to penicillin; Z88.8 Allergy status to other drugs, medicaments and biological substances; Z88.5 Allergy status to narcotic agent
CPT/HCPCS: 36415; 76801; 80053; 81003; 84702; 85025; 85610; 86850; 86900; 86901; 99282

== ENCOUNTER 2018-03-25 16:25 | Emergency (ER) | payer OTHER ==
[2018-03-25 16:54] VITALS: BP 102/71
--- NOTE | 2018-03-25 17:37 | UC ---
Eye Complaint HPI - HPI Summary HPI Summary: 22 y/o female presents to the urgent care c/o Thursday woke with irriation to L eye; saw OBGYN who gave her erythromycin eye oint; eye swelling, redness, drainage worsening starting yesterday; now eye very swollen, red and has some disocoloration to lid; denies any trauma. States she is having blurriness to L eye. - History of Current Complaint Chief Complaint: UCEye Stated Complaint: EYE COMPLAINT Time Seen by Provider: 03/25/18 17:33 Hx Obtained From: Patient Onset/Duration: Gradual Onset, Lasting Days - 4 days, Still Present, Worse Since - today Timing: Days - days Severity Initially: Mild Severity Currently: Moderate Pain Intensity: 5 Pain Scale Used: 0-10 Numeric Location of Injury: Conjunctiva - left eye red, Periorbital - swelling and bruising Character: Dull, Foreign Body Sensation Aggravating Factor(s): Blinking - Allergies/Home Medications Allergies/Adverse Reactions: Allergies Allergy/AdvReac Type Severity Reaction Status Date / Time aspirin Allergy Hives Verified 03/25/18 16:46 ibuprofen Allergy Hives Verified 03/25/18 16:46 paroxetine [From Paxil] Allergy Hives Verified 03/25/18 16:46 Penicillins Allergy Hives Verified 03/25/18 16:46 tramadol Allergy See Comment Verified 03/25/18 16:46 Home Medications: Home Medications Erythromycin OPTH OINT* [Erythromycin 0.5% OPTH OINT*] 1 applic RIGHT EYE TID [History Confirmed 03/25/18] Ferrous Sulfate [Iron High-Potency] 325 mg PO DAILY 03/25/18 [History Confirmed 03/25/18] PMH/Surg Hx/FS Hx/Imm Hx - Surgical History Surgical History: Yes Surgery Procedure, Year, and Place: 2013 [facility] CYST [facility]. 10/2014 LEFT WRIST TENDON REPAIR[facility]. Acl L leg. - Family History Known Family History: Positive: Cardiac Disease, Hypertension, Diabetes Family History: no cardoi-vascular issues in family history, no clotting disorders, - Social History Alcohol Use: None Substance Use Type: None Smoking Status (MU): Former Smoker Type: Cigarettes Amount Used/How Often: 1/2 pack daily Have You Smoked in the Last Year: Yes Household Exposure Type: Cigarettes - Immunization History Most Recent Influenza Vaccination: Declined 2016 Most Recent Pneumonia Vaccination: Uknown Physical Exam - Summary Physical Exam Summary: Vital Signs Reviewed: Yes General: Well appearing, well nourished female in no apparent pain or respiratory distress Eyes: Positive: Conjunctiva Inflamed - Visual acuity: WNL,Visual hills: full to confrontation.mild periorbital soft tissue swelling at the RT upper eyelid with erythema and white small pustule in the medial side of eyelid, tender to palpation. PERRLA, EOMI intact w/out limitation or complaint of pain. eyelashes clear. mild tearing and yellowish drainage observed. No ciliary flush. No chemosis, No photophobia. Normal fundoscopic exam; no proptosis, exophthalmos, nystagmus. ENT: Positive: Normal ENT inspection, Hearing grossly normal, Pharynx normal, Nasal congestion, Nasal drainage - clear, TMs normal - B/L external ear canal clear , TM's WNL. Negative: Tonsillar swelling, Tonsillar exudate Neck: Positive: Supple, Nontender, No Lymphadenopathy Respiratory: Positive: Chest nontender, Lungs clear, Normal breath sounds, No respiratory distress Cardiovascular: Positive: RRR, No Murmur, Pulses Normal, Brisk Capillary Refill Abdomen Description: Positive: Nontender, No Organomegaly, Soft. Negative: CVA Tenderness (R), CVA Tenderness (L) Bowel Sounds: Positive: Present Musculoskeletal: Positive: Strength Intact, ROM Intact, No Edema Neurological Exam: Normal Psychological Exam: Normal Skin Exam: Normal Triage Information Reviewed: Yes Vital Signs: Initial Vital Signs Temp 98.4 F 03/25/18 16:48 Pulse 91 03/25/18 16:48 Resp 18 03/25/18 16:48 BP 102/71 03/25/18 16:48 Pulse Ox 100 03/25/18 16:48 Eye Complaint Course/Dx - Differential Dx/Diagnosis Differential Diagnosis/HQI/PQRI: Conjunctivitis, Corneal Abrasion, Periorbital Cellulitis, Orbital Cellulitis, Uveitis Provider Diagnosis: Periorbital cellulitis of left eye, Conjunctivitis, acute, bilateral Discharge - Sign-Out/Discharge Documenting (check all that apply): Patient Departure - d/c home All imaging exams completed and their final reports reviewed: No Studies - Discharge Plan Condition: Stable Disposition: HOME Prescriptions: Clindamycin Cap(NF) [Clindamycin Cap 300 mg Cap(NF)] 300 mg PO TID #21 cap Tobramycin 0.3% OPHTH.AMA* 1 drop BOTH EYES Q4H #1 btl Patient Education Materials: Periorbital Cellulitis in Adults (ED), Conjunctivitis (ED) Forms: *Work Release Referrals: [facility] REFERRAL [Outside] - 1 Day Sukhdev Nguyen MD [Medical Doctor] - 1 Day Additional Instructions: 1- Please take Clindamycin PO as directed to alleviate infection. 2-Please apply Tobramycin ophthalmic drops on both eye. Please apply cold compresses. 3- Take Tylenol PO q6-8hrs as directed to alleviate symptoms of pain and swelling 4- Please f/u tomorrow w/ with market gardener Dr Nguyen for further evaluation and treatment on your Periorbital Cellulitis. However if you develop severe eye pain over night or fever, please go immediately to the ER for further evaluation and treatment. - Billing Disposition and Condition Condition: STABLE Disposition: Home
== END 2018-03-25 18:10 | disposition home or self-care (01) ==
LOC: UCEAST 16:25
DX: O99.719 Diseases of the skin and subcutaneous tissue complicating pregnancy, unspecified trimester (principal); O99.89 Other specified diseases and conditions complicating pregnancy, childbirth and the puerperium; H10.33 Unspecified acute conjunctivitis, bilateral; L03.213 Periorbital cellulitis; Z88.8 Allergy status to other drugs, medicaments and biological substances; Z88.5 Allergy status to narcotic agent; Z88.0 Allergy status to penicillin; Z87.891 Personal history of nicotine dependence
CPT/HCPCS: 99212; G0463

== ENCOUNTER 2018-06-08 08:09 | Inpatient (IN) | payer OTHER ==
[2018-06-08] MEDS ORDERED: Lactated Ringers 1000 ML Bag* 1,000 ML IV ONE (09:49)
[2018-06-08] MEDS ORDERED: Buffered Lidocaine 1% SYRIN* 1 ML/SYRINGE INTRADERM ONE (09:49)
[2018-06-08] MEDS ORDERED: Misoprostol TAB* 100 MCG PO ONE (09:49)
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
[2018-06-08] MEDS ORDERED: Lactated Ringers 1000 ML Bag* 1,000 ML IV SCH (10:00)
[2018-06-08 11:10] LABS: ABS Basophils 0 10^3/ul (0-0.2); ABS Eosinophils 0.1 10^3/ul (0-0.6); ABS Lymphocytes 3.3 10^3/ul (1.0-4.8); ABS Monocytes 0.8 10^3/ul (0-0.8); ABS Neutrophils 8.5 10^3/ul (1.5-7.7); ABS Nucleated RBC 0 10^3/ul; Eosinophil % 0.8 %; Hematocrit 30 % (33-41); Hemoglobin 9.8 g/dL (12.0-16.0); Lymphocyte % 25.7 %; Mean Corpuscular HGB Conc 33 g/dL (31-36); Mean Corpuscular Hemoglobin 25 pg (27-31); Mean Corpuscular Volume 77 fL (80-97); Mean Platelet Volume 7.1 fL (7.4-10.4); Nucleated Red Blood Cells % 0.1; Platelet Count 243 10^3/uL (150-450); Red Blood Count 3.91 10^6 /uL (3.70-4.87); Red Cell Distribution Width 15 % (10.5-15); White Blood Count 12.7 10^3/uL (3.5-10.8)
[2018-06-08] MEDS ORDERED: Nalbuphine* 10 MG/ML 1 ML VIAL IV PRN (22:42)
--- NOTE | 2018-06-08 22:46 | PN ---
Progress Note - Progress Note Date of Service: 06/08/18 SOAP: Subjective: [Pt reports contractions are further apart but stronger. Pt tired and agrees to therapeutic rest.] Objective: [FHR: 130, + accels, -decels, moderate variability ctx q 5min cervix: 2/90/0] Assessment: [22 y.o. , 39w2d EGA, induction of labor] Plan: [1) Therapeutic rest 2) Reevaluate in AM or sooner PRN]
[2018-06-08] MEDS: Promethazine INJ(RESTRICTED)* 25 MG/ML 1 ML VIAL IV PRN (23:10)
[2018-06-09] MEDS: Promethazine INJ(RESTRICTED)* 25 MG/ML 1 ML VIAL IV PRN (05:53)
[2018-06-09] MEDS ORDERED: Ondansetron ODT TAB* 4 MG ONE (09:46)
[2018-06-09] MEDS ORDERED: Lidocaine 1%* 5 ML VIAL ONE (09:47)
[2018-06-09] MEDS ORDERED: Ondansetron ODT TAB* 4 MG PO PRN (11:35)
--- NOTE | 2018-06-09 13:03 | PN ---
Progress Note - Progress Note Date of Service: 06/09/18 SOAP: Subjective: [Pt is requesting epidural, nitrous was ineffective. ] Objective: [FHR: 135bpm, BP:134/75, P:80 cervix: 690/0] Assessment: [22 y.o. , 39w3d EGA, active labor] Plan: [1) Reevaluate cervix and then epidural if pt desires]
[2018-06-09] MEDS ORDERED: fentaNYL* 50 MCG/ML 2 ML VIAL (100 MCG VIAL) ONE (13:18)
[2018-06-09] MEDS ORDERED: Bupivacaine 0.25% SDV PF* 10 ML VIAL INJ ONE (13:18)
[2018-06-09] MEDS ORDERED: Sodium Citrate/Citric Acid* 15 ML UDC PO PRN (13:34)
[2018-06-09] MEDS ORDERED: EPHEDrine (Pressors)* 50 MG/ML VIAL IV PUSH PRN ×2 (13:34)
[2018-06-09] MEDS ORDERED: Famotidine TAB* 20 MG PO PRN (13:34)
[2018-06-09] MEDS ORDERED: Phenylephrine 40 MCG/ML SYRINGE IV PUSH PRN ×2 (13:34)
[2018-06-09] MEDS ORDERED: Lactated Ringers 1000 ML Bag* 1,000 ML IV ONE (13:34)
[2018-06-09] MEDS ORDERED: Lactated Ringers 1000 ML Bag* 1,000 ML IV SCH ×2 (14:00→16:00)
[2018-06-09] MEDS ORDERED: OBEPIDURAL* 250 ML EPIDURAL SCH (14:00)
[2018-06-09] MEDS ORDERED: Oxytocin in LR* 20 UNITS/1,000 ML BAG IVPB ONE (14:37)
[2018-06-09] MEDS ORDERED: Witch Hazel PAD* JAR TOPICAL PRN (15:14)
[2018-06-09] MEDS ORDERED: Glycerin ADULT SUPP PR PRN (15:14)
[2018-06-09] MEDS ORDERED: Dibucaine 1% 28.35 GM TUBE PR PRN (15:14)
--- NOTE | 2018-06-09 15:17 | PROCNOTE ---
[facility] OB: Delivery Note - Delivery A Date of : 06/09/18 Time of : 14:50 Sex: Male Score 1 Minute: 8 Score 5 Minutes: 9 Gestational Age in Weeks and Days at Delivery: 39 Weeks and 3 Days Delivery Method: Spontaneous Vaginal Labor: Induced Amniotic Fluid: Clear Estimated Blood Loss: 200 Anesthesia/Analgesia: ITF/Spinal for Labor Delivered By: Joslyn Stearns - Nursery Level of Nursery: Regular/Bedside - Perineum Perineal Injury: Perineal Laceration, 1st Degree Perineal Repair: By Delivering Practioner - Events Delivery Events of Note: Pitocin Only After Delivery
[2018-06-09] MEDS ORDERED: Oxytocin in LR* 20 UNITS/1,000 ML BAG IVPB SCH (16:00)
[2018-06-09] MEDS ORDERED: Ammonia Inhalant* 1 EA AMP ONE (16:25)
[2018-06-09] MEDS ORDERED: Lidocaine 1% INJ* 10 MG/ML 30 ML SDV ONE (16:54)
[2018-06-09] MEDS: Acetaminophen TAB* 325 MG PO PRN ×2 (17:10→21:12)
[2018-06-09] MEDS ORDERED: Simethicone TAB* 80 MG TAB.CHEW PO SCH (17:30)
[2018-06-09] MEDS: Docusate CAP* 100 MG PO SCH (21:12)
[2018-06-10 08:37] LABS: ABS Basophils 0.1 10^3/ul (0-0.2); ABS Eosinophils 0.1 10^3/ul (0-0.6); ABS Lymphocytes 3.7 10^3/ul (1.0-4.8); ABS Monocytes 1.4 10^3/ul (0-0.8); ABS Neutrophils 14.6 10^3/ul (1.5-7.7); ABS Nucleated RBC 0 10^3/ul; Eosinophil % 0.3 %; Hematocrit 27 % (35-47); Hemoglobin 8.9 g/dL (12.0-16.0); Lymphocyte % 18.8 %; Mean Corpuscular HGB Conc 33 g/dL (31-36); Mean Corpuscular Hemoglobin 25 pg (27-31); Mean Corpuscular Volume 77 fL (80-97); Nucleated Red Blood Cells % 0; Platelet Count 227 10^3/uL (150-450); Red Cell Distribution Width 15 % (10.5-15); White Blood Count 19.9 10^3/uL (3.5-10.8)
[2018-06-10] MEDS ORDERED: Ferrous Gluconate TAB* 324 MG TAB PO SCH (09:00)
[2018-06-10] MEDS: Docusate CAP* 100 MG PO SCH (09:49)
[2018-06-10 12:50] VITALS: BP 136/81
[2018-06-10] MEDS ORDERED: Varicella Virus Vaccine Live* 0.5 ML VIAL SUBCUT ONE (18:00)
== END 2018-06-10 18:18 | disposition home or self-care (01) | DRG 560 ==
LOC: MCHOBOUT 08:09 → MCHOB 10:25
PROVIDERS: ADMIT Midwife; ATTEND Midwife
PROC: 10E0XZZ Delivery of Products of Conception, External Approach (ICD-10-PCS; principal; 2018-06-08)
PROC: 3E033VJ Introduction of Other Hormone into Peripheral Vein, Percutaneous Approach (ICD-10-PCS; 2018-06-08)
PROC: 10907ZC Drainage of Amniotic Fluid, Therapeutic from Products of Conception, Via Natural or Artificial Opening (ICD-10-PCS; 2018-06-08)
PROC: 4A1HXCZ Monitoring of Products of Conception, Cardiac Rate, External Approach (ICD-10-PCS; 2018-06-08)
PROC: 0HQ9XZZ Repair Perineum Skin, External Approach (ICD-10-PCS; 2018-06-08)
DX: O70.0 First degree perineal laceration during delivery (principal); Z37.0 Single live birth; O90.81 Anemia of the puerperium; Z3A.39 39 weeks gestation of pregnancy; Z88.6 Allergy status to analgesic agent; Z88.0 Allergy status to penicillin; Z88.8 Allergy status to other drugs, medicaments and biological substances
CPT/HCPCS: 36415; 85025; 86850; 86900; 86901; A9270-GY; J2300; J2550; J3010; J3490; S0191

== ENCOUNTER → 2018-09-08 07:18 | Day surgery (SDC) | payer OTHER ==
[~2018-09-08 07:18] MED LIST: Buffered Lidocaine 1% SYRIN* 1 ML/SYRINGE INTRADERM ONE; Bupivacaine 0.5% W/EPI SDV* 30 ML VIAL ONE; Clindamycin 900 MG IVPREMIX(* 900 MG/50 ML SDV IV ONE; Dexamethasone IV* 4 MG/ML 1 ML (4 MG) IV SLOW PU ONE; Dexamethasone IV* 4 MG/ML 1 ML (4 MG) ONE; DiMENhydriNATE IV* 50 MG/ML VIAL IV PUSH PRN; DiMENhydriNATE IV* 50 MG/ML VIAL ONE; Famotidine IV* 10 MG/ML 2 ML (20 mg) IV ONE; Famotidine IV* 10 MG/ML 2 ML (20 mg) ONE; Gentamicin ADULT (*) 240 MG in NS 0.9% 100 ML* 100 ML IVPB ONE; HYDROcodone/ACETAMIN 5-325 MG* 1 TAB PO PRN; Lactated Ringers 1000 ML Bag* 1,000 ML IV SCH; Lidocaine 2% PF * 5 ML VIAL ONE; Midazolam* 1 MG/ML 5 ML VIAL (5 MG) ONE; Naloxone* 0.4 MG/ML 1 ML VIAL IV PRN; Ondansetron INJ* 2 MG/ML VIAL ONE; Propofol* 10 MG/ML 20 ML BTL ONE; Succinylcholine* 20 MG/ML 10 ML VIAL ONE; fentaNYL* 50 MCG/ML 2 ML VIAL (100 MCG VIAL) ONE; oxyCODONE/Acetamin 5/325 MG* TAB PO PRN
[2018-09-08 08:49] VITALS: BP 124/77
[2018-09-08] MEDS: fentaNYL* 50 MCG/ML 2 ML VIAL (100 MCG VIAL) IV PRN ×2 (12:37→12:54)
--- NOTE | 2018-09-14 15:42 | OP ---
DATE OF OPERATION: 09/08/18 - [facility] DATE OF : [birth year] SURGEON: Elie Adame MD PLASTIC PANEL INSTALLER: None. ANESTHESIA: General anesthetic with endotracheal intubation. PRE-OP DIAGNOSIS: Desires surgical sterilization. POST-OP DIAGNOSIS: Desires surgical sterilization. OPERATIVE PROCEDURE: Laparoscopic bilateral tubal ligation with Filshie clips. ESTIMATED BLOOD LOSS: None. SPECIMENS: There were no specimen sent to Pathology. IV FLUIDS: She received about a liter of IV crystalloid fluid. URINE OUTPUT: 300 cc of clear urine.. FINDINGS: Laparoscopically, she was noted to have a normal uterus, normal adnexa bilaterally, normal bowel bladder and a normal liver edge and gallbladder and there were no complications. DESCRIPTION OF PROCEDURE: The patient was taken to operating room where she was identified. She was placed on the operating table where a general anesthetic with endotracheal intubation was obtained without difficulty. She was then placed in dorsal lithotomy position, prepped and draped in normal sterile fashion. Attention was then brought onto the patient's peritoneum, the bladder was catheterized with a Glover catheter and drained of clear urine. A speculum was inserted into the patient's vagina and the cervix was identified. It was then grasped with the single-tooth tenaculum at the anterior lip, and through the cervix, a ClearView uterine manipulator was introduced. The balloon and manipulator was insufflated with 3 cc of sterile water. The single- tooth tenaculum was removed from the cervix as well as the vaginal speculum. Attention was then brought onto the patient's abdomen where a 1 cm infraumbilical skin incision was made with a knife and carried through to the underlying layer fascia. The fascia was grasped with Jorge A clamps, brought up to the incision, and entered sharply with the a knife entry into the patient's abdomen through the peritoneum. It was confirmed using a Maude clamp. Through the umbilical incision, a 10 mm blunt trocar was introduced. The balloon in the trocar was insufflated with air to keep the trocar in place. A second trocar was introduced 4 cm above the symphysis pubis under direct visualization. The patient's abdomen was then insufflated with CO2 gas. She was placed in the Trendelenburg position and then I proceeded with tubal ligation with application of the Filshie clips at the midportion of the fallopian tubes bilaterally without any complications, with good blanching of the entirety of fallopian tube diameter at the site of application. The suprapubic trocar was removed from the patient's abdomen as well as the blunt trocar. All the instruments were removed from the patient's abdomen. The gas was removed from the patient's abdomen. The umbilical fascial incision was closed with 0 Polysorb suture in a running fashion and the skin incisions at the umbilicus and suprapubically were closed with 4-0 Monocryl subcuticular stitches. The uterine manipulator and the Glover catheter were removed. The patient tolerated the procedure well. Sponge, lap, and needle counts were correct x2. She was then transferred to the recovery area in stable condition. [id number]/[facility] #: [id number] MTDArt
== END | disposition home or self-care (01) ==
LOC: OR 07:18
PROVIDERS: ATTEND Obstetrics & Gynecology
DX: Z30.2 Encounter for sterilization (principal); Z87.891 Personal history of nicotine dependence; Z88.0 Allergy status to penicillin; Z88.8 Allergy status to other drugs, medicaments and biological substances
CPT/HCPCS: C1776; J0330; J1100; J1240; J1580; J2250; J2405; J2704; J3010

== ENCOUNTER 2018-10-11 08:37 | Emergency (ER) | payer OTHER ==
[2018-10-11 08:50] VITALS: BP 139/81
--- NOTE | 2018-10-11 09:24 | UC ---
Throat Pain/Nasal Naif HPI - HPI Summary HPI Summary: The patient is a 23-year-old female with a three-day history of nasal congestion postnasal drip mild sore throat and productive cough. She denies any fever/ chills. Has right ear pain which started about a day ago. She denies any chest pain or shortness of breath. She denies a history of pneumonia. She has no nausea vomiting or diarrhea. - History of Current Complaint Chief Complaint: UCEar Stated Complaint: EAR PAIN CONGESTION Time Seen by Provider: 10/11/18 09:15 Hx Obtained From: Patient Hx Last Menstrual Period: tubal ligation Onset/Duration: Gradual Onset, Lasting Days Severity: Mild Pain Intensity: 3 Pain Scale Used: 0-10 Numeric Cough: Nonproductive Associated Signs & Symptoms: Positive: Sinus Discomfort, Nasal Discharge - Epiglottits Risk Factors Epiglottis Risk Factors: Negative - Allergies/Home Medications Allergies/Adverse Reactions: Allergies Allergy/AdvReac Type Severity Reaction Status Date / Time aspirin Allergy Severe Hives Verified 10/11/18 08:50 ibuprofen Allergy Severe Hives Verified 10/11/18 08:50 paroxetine [From Paxil] Allergy Severe See Comment Verified 10/11/18 08:50 Penicillins Allergy Severe Hives Verified 10/11/18 08:50 tramadol AdvReac Severe Vomiting Verified 10/11/18 08:50 elderberry Allergy Severe Rash Uncoded 10/11/18 08:50 PMH/Surg Hx/FS Hx/Imm Hx Previously Healthy: Yes - Surgical History Surgical History: Yes Surgery Procedure, Year, and Place: 2012 CYST DRAINED FROM [facility], [facility]. 2013 CYST REMOVED FROM [facility], [facility]. 10/2014 LEFT WRIST TENDON REPAIR, [facility]. Acl L knee 2015 - Family History Known Family History: Positive: Cardiac Disease, Hypertension, Diabetes Family History: no cardoi-vascular issues in family history, no clotting disorders, - Social History Alcohol Use: Rare Substance Use Type: None Smoking Status (MU): Former Smoker Type: Cigarettes Amount Used/How Often: 1/2 pack daily Have You Smoked in the Last Year: Yes When Did the Patient Quit Smoking/Using Tobacco: Nov 2017 Household Exposure Type: Cigarettes - Immunization History Most Recent Influenza Vaccination: 06/10/18 Most Recent Pneumonia Vaccination: [place] Review of Systems All Other Systems Reviewed And Are Negative: Yes Constitutional: Positive: Negative Skin: Positive: Negative Eyes: Positive: Negative ENT: Positive: Sore Throat, Ear Ache, Nasal Discharge, Sinus Congestion, Sinus Pain/Tenderness Respiratory: Positive: Cough Cardiovascular: Positive: Negative Gastrointestinal: Positive: Negative Genitourinary: Positive: Negative Motor: Positive: Negative Neurovascular: Positive: Negative Musculoskeletal: Positive: Negative Neurological: Positive: Negative Psychological: Positive: Negative Physical Exam Triage Information Reviewed: Yes Appearance: Well-Appearing, No Pain Distress, Well-Nourished Vital Signs: Initial Vital Signs Temp 98.1 F 10/11/18 08:46 Pulse 110 10/11/18 08:46 Resp 18 10/11/18 08:46 BP 139/81 10/11/18 08:46 Pulse Ox 98 10/11/18 08:46 Vital Signs Reviewed: Yes Eyes: Positive: Conjunctiva Clear ENT: Positive: Pharynx normal, Nasal congestion, Nasal drainage, TM bulging - R , Uvula midline. Negative: Hearing grossly normal, TM dull, TM red, Tonsillar swelling, Tonsillar exudate, Trismus, Muffled voice, Hoarse voice, Dental tenderness, Sinus tenderness Dental Exam: Normal Neck: Positive: Supple, Nontender, No Lymphadenopathy Respiratory: Positive: Lungs clear, Normal breath sounds, No respiratory distress, No accessory muscle use Cardiovascular: Positive: RRR, No Murmur Abdominal Exam: Normal Musculoskeletal: Positive: ROM Intact, No Edema Neurological: Positive: Alert Psychological Exam: Normal Skin Exam: Normal Throat Pain/Nasal Course/Dx - Differential Dx/Diagnosis Provider Diagnosis: Rhinosinusitis, Right serous otitis media, Elevated BP without diagnosis of hypertension Discharge ED - Sign-Out/Discharge Documenting (check all that apply): Patient Departure All imaging exams completed and their final reports reviewed: No Studies - Discharge Plan Condition: Stable Disposition: HOME Prescriptions: Fluticasone NASAL SPRAY 50MCG* [Flonase NASAL SPRAY 50MCG*] 2 spray BOTH NARES BID #1 btl Patient Education Materials: Rhinosinusitis (ED), Serous Otitis Media (ED) Forms: *Work Release Referrals: No Primary Care Phys,NOPCP [Primary Care Provider] - Additional Instructions: recheck for new or worsening symptoms I suggest AFRIN nasal spray 2 sprays each nostril 3x day for 3 days saline nasal spray 2 sprays each nostril 2x day blow nose then 2 sprays each nostril 2x days for up to 3 weeks - Billing Disposition and Condition Condition: STABLE Disposition: Home
== END 2018-10-11 09:25 | disposition home or self-care (01) ==
LOC: UCEAST 08:37
DX: J32.9 Chronic sinusitis, unspecified (principal); H66.91 Otitis media, unspecified, right ear; R03.0 Elevated blood-pressure reading, without diagnosis of hypertension; Z87.891 Personal history of nicotine dependence; Z88.0 Allergy status to penicillin
CPT/HCPCS: 99212; G0463

== ENCOUNTER 2019-02-23 20:39 | Emergency (ER) | payer OTHER ==
--- NOTE | 2019-02-23 20:46 | UC ---
Eye Complaint HPI - History of Current Complaint Stated Complaint: HEADACHE EYE COMPLAINT Time Seen by Provider: 02/23/19 20:45 Hx Last Menstrual Period: tubal ligation - Allergies/Home Medications Allergies/Adverse Reactions: Allergies Allergy/AdvReac Type Severity Reaction Status Date / Time aspirin Allergy Severe Hives Verified 10/11/18 08:50 ibuprofen Allergy Severe Hives Verified 10/11/18 08:50 paroxetine [From Paxil] Allergy Severe See Comment Verified 10/11/18 08:50 Penicillins Allergy Severe Hives Verified 10/11/18 08:50 tramadol AdvReac Severe Vomiting Verified 10/11/18 08:50 elderberry Allergy Severe Rash Uncoded 10/11/18 08:50 PMH/Surg Hx/FS Hx/Imm Hx - Additional Past Medical History Additional PMH: None - Surgical History Surgical History: Yes Surgery Procedure, Year, and Place: 2012 CYST DRAINED FROM [facility], [facility]. 2013 CYST REMOVED FROM [facility], [facility]. 10/2014 LEFT WRIST TENDON REPAIR, [facility]. Acl L knee 2015 - Family History Known Family History: Positive: Cardiac Disease, Hypertension, Diabetes - Social History Lives: With Family Alcohol Use: Rare Substance Use Type: None Smoking Status (MU): Former Smoker Type: Cigarettes Amount Used/How Often: 1/2 pack daily Have You Smoked in the Last Year: Yes When Did the Patient Quit Smoking/Using Tobacco: Nov 2017 Household Exposure Type: Cigarettes - Immunization History Most Recent Influenza Vaccination: 06/10/18 Most Recent Pneumonia Vaccination: [place] Review of Systems All Other Systems Reviewed And Are Negative: No Constitutional: Positive: Negative Skin: Positive: Negative ENT: Positive: Negative Respiratory: Positive: Negative Cardiovascular: Positive: Negative Gastrointestinal: Positive: Negative Neurological: Positive: Headache Psychological: Positive: Negative Physical Exam - Summary Physical Exam Summary: GENERAL: NAD. WDWN. No pain distress. SKIN: No rashes, sores, lesions, or open wounds. HEENT: Head: AT/NC Eyes: EOM intact. Conjunctiva clear without inflammation or discharge. Ears: Hearing grossly normal. TMs intact, no bulging, erythema, or edema. Nose: Nasal mucosa pink and moist. NTTP maxillary and frontal sinus. Throat: Posterior oropharynx without exudates, erythema, or tonsillar enlargement. Uvula midline. NECK: Supple. Nontender. No lymphadenopathy. CHEST: CTAB. No r/r/w. No accessory muscle use. Breathing comfortably and in no distress. CV: RRR. Pulses intact. Cap refill <2seconds NEURO: Alert. PSYCH: Age appropriate behavior. Triage Information Reviewed: Yes Vital Signs Reviewed: Yes Discharge ED - Sign-Out/Discharge Documenting (check all that apply): Patient Departure All imaging exams completed and their final reports reviewed: No Studies - Discharge Plan Condition: Stable Disposition: HOME Referrals: No Primary Care Phys,NOPCP [Primary Care Provider] - - Billing Disposition and Condition Condition: STABLE Disposition: Home
[2019-02-23 20:59] VITALS: BP 126/80
--- NOTE | 2019-02-23 21:13 | UC ---
Headache HPI - HPI Summary HPI Summary: 23 yo with onset last night of stabbing pain in the left head, with progressive headache today. She is aware of some lid swelling on the right, without photophobia, nausea or vomiting. No ataxia. Mild nasal congestion. No cough or shortness of breath. - History Of Current Complaint Chief Complaint: UCGeneralIllness Stated Complaint: HEADACHE EYE COMPLAINT Time Seen by Provider: 02/23/19 20:45 Hx Obtained From: Patient Hx Last Menstrual Period: tubal ligation Onset/Duration: Sudden Onset Pain Intensity: 9 Timing: Constant Character: Throbbing Location of Headache: Parietal Aggravating Factor(s): Exertion Allevating Factor(s): Rest Associated Signs And Symptoms: Positive: Dizziness, Fever. Negative: Nausea, Neck Pain, Neck Stiffness, Decreased LOC, Visual Changes - Risk Factors SAH Risk Factors: Negative Meningitis Risk Factors: Negative SDH Risk Factors: Negative Temporal Arteritis Risk Factors: Negative - Allergies/Home Medications Allergies/Adverse Reactions: Allergies Allergy/AdvReac Type Severity Reaction Status Date / Time aspirin Allergy Severe Hives Verified 02/23/19 21:00 ibuprofen Allergy Severe Hives Verified 02/23/19 21:00 paroxetine [From Paxil] Allergy Severe See Comment Verified 02/23/19 21:00 Penicillins Allergy Severe Hives Verified 02/23/19 21:00 tramadol AdvReac Severe Vomiting Verified 02/23/19 21:00 elderberry Allergy Severe Rash Uncoded 02/23/19 21:00 Home Medications: Home Medications Naproxen Sodium [Aleve] 440 mg PO SEE INSTRUCTIONS 02/23/19 [History Confirmed 02/23/19] PMH/Surg Hx/FS Hx/Imm Hx Previously Healthy: Yes - Surgical History Surgical History: Yes Surgery Procedure, Year, and Place: 2013 CYST DRAINED FROM [facility], [facility]. 2014 CYST REMOVED FROM [facility], [facility]. 10/2014 LEFT WRIST TENDON REPAIR, [facility]. Acl L knee 2015 - Family History Known Family History: Positive: Cardiac Disease, Hypertension, Diabetes, Other - father with stroke, hypertension and brain aneurysm - Social History Occupation: Employed Full-time Lives: With Family Alcohol Use: Rare Substance Use Type: None Smoking Status (MU): Former Smoker Type: Cigarettes Amount Used/How Often: 1/2 pack daily Have You Smoked in the Last Year: Yes When Did the Patient Quit Smoking/Using Tobacco: Nov 2017 Household Exposure Type: Cigarettes - Immunization History Most Recent Influenza Vaccination: 06/10/18 Most Recent Pneumonia Vaccination: [place] Review of Systems All Other Systems Reviewed And Are Negative: Yes Constitutional: Positive: Fever, Chills, Fatigue Skin: Positive: Negative Eyes: Positive: Eye Redness ENT: Positive: Nasal Discharge Respiratory: Positive: Cough. Negative: Shortness Of Breath Cardiovascular: Negative: Palpitations, Chest Pain Gastrointestinal: Positive: Negative Genitourinary: Positive: Negative Motor: Positive: Negative Neurovascular: Positive: Negative Musculoskeletal: Positive: Negative Neurological: Positive: Negative Psychological: Positive: Negative Is Patient Immunocompromised?: No Physical Exam Triage Information Reviewed: Yes Appearance: Ill-Appearing, Pain Distress - mild Vital Signs: Initial Vital Signs Temp 102.1 F 02/23/19 20:54 Pulse 119 02/23/19 20:54 Resp 19 02/23/19 20:54 BP 126/80 02/23/19 20:54 Pulse Ox 98 02/23/19 20:54 ENT: Positive: Pharyngeal erythema Neck: Positive: Supple, Nontender, No Lymphadenopathy. Negative: Nuchal Rigidity Respiratory: Positive: Lungs clear, Normal breath sounds Cardiovascular: Positive: No Murmur, Tachycardia Musculoskeletal Exam: Normal Neurological Exam: Normal Neurological: Positive: Alert, Muscle Tone Normal, Other: - Negative Romberg's and Brudzinski's. Psychological Exam: Normal Skin Exam: Normal Diagnostics - Laboratory Lab Results: flu A positive Headache Course/Dx - Course Course Of Treatment: Tamiflu given due to acuity and severity of illness. Discussed temperature control. Off work. - Differential Dx/Diagnosis Differential Diagnosis/HQI/PQRI: Migraine, Tension Headache, Viral Syndrome, Other - influenza Provider Diagnosis: Influenza A Discharge ED - Sign-Out/Discharge Documenting (check all that apply): Patient Departure All imaging exams completed and their final reports reviewed: No Studies - Discharge Plan Condition: Stable Disposition: HOME Prescriptions: Oseltamivir Phosphate [Tamiflu] 75 mg PO BID #9 capsule Patient Education Materials: Influenza (ED) Forms: *Work Release Referrals: No Primary Care Phys,NOPCP [Primary Care Provider] - Additional Instructions: Ensure a high intake of fluids which will help to control fever. Use acetaminophe 650mg every 4 hours as needed for fever. Follow up in the emergency room if you develop increasing difficulty with breathing, shortness of breath, or symptoms of dehydration. Off work until you are free of fever for 24 hours. - Billing Disposition and Condition Condition: STABLE Disposition: Home
[2019-02-23 21:14] LABS: Influenza A Molecular POSITIVE (Negative)
[2019-02-23] MEDS ORDERED: Acetaminophen TAB* 325 MG PO ONE (21:14)
[2019-02-23] MEDS ORDERED: Oseltamivir CAP* 75 MG CAP PO ONE (21:18)
== END 2019-02-23 21:45 | disposition home or self-care (01) ==
LOC: UCEAST 20:39
DX: J10.1 Influenza due to other identified influenza virus with other respiratory manifestations (principal); Z88.6 Allergy status to analgesic agent; Z88.8 Allergy status to other drugs, medicaments and biological substances; Z88.0 Allergy status to penicillin; Z88.5 Allergy status to narcotic agent; Z91.09 Other allergy status, other than to drugs and biological substances; Z87.891 Personal history of nicotine dependence
CPT/HCPCS: 99212; A9270-GY; G0463